=== PATIENT | female | born 1965 | race Caucasian/White ===

== ENCOUNTER 2019-12-23 16:21 | Emergency (ER) | payer BC, SELFPAY ==
--- NOTE | 2019-12-23 | US_ITS ---
EXAMINATION: US LOWER EXTREMITY VENOUS, BILATERAL CLINICAL INFORMATION: Shortness of breath. Lower extremity edema. COMPARISON: None. TECHNIQUE: Doppler spectral analysis and color flow Doppler imaging was performed of both lower extremities. Compression and augmentation maneuvers were performed. FINDINGS: Bilaterally, the common femoral, femoral, popliteal and calf veins were well-identified and normal. They demonstrate normal compressibility and color fill-in. IMPRESSION: No evidence for a lower extremity deep vein thrombosis.
[2019-12-23 16:43] VITALS: BP 155/62; PULSE 85; RESP 18; TEMP 36.7; O2SAT 99; BMI 31.7
[2019-12-23 16:48] VITALS: RESP 20
--- NOTE | 2019-12-23 16:51 | ECG_ITS ---
Test Reason : CHEST TITNESS Blood Pressure : / mmHG Vent. Rate : 077 BPM Atrial Rate : 077 BPM P-R Int : 128 ms QRS Dur : 084 ms QT Int : 368 ms P-R-T Axes : 061 009 031 degrees QTc Int : 416 ms Normal sinus rhythm Possible Left atrial enlargement Borderline ECG When compared with ECG of 25-DEC-2017 16:17, No significant change was found Referred By: Karin Wong Electronically Signed By:CÉSAR KENDRICK
--- NOTE | 2019-12-23 16:51 | XR_ITS ---
EXAMINATION: XR CHEST CLINICAL INFORMATION: Shortness of breath COMPARISON: CTA chest 07/15/2017 TECHNIQUE: Frontal view of the chest was obtained. FINDINGS: The heart and pulmonary vessels appear normal. No infiltrates effusions or lung masses are seen. There is no evidence of CHF. Some chronic reticulonodular changes are present at the lung bases, left greater than right that were also seen on the prior CT scan. Degenerative changes in the spine with scoliosis convex to the left. IMPRESSION: No acute intrathoracic disease.
[2019-12-23 17:13] LABS: MANUAL DIFF FLAG NO
[2019-12-23 17:15] LABS: Basophils Percent Auto 0.4 % (0-2); Eosinophils Absolute Auto 0.3 X10*3/uL (0.0-0.4); Eosinophils Percent Auto 4.7 % (0-4); Hematocrit 39.2 % (37-47); Hemoglobin 12.8 g/dl (12.0-16.0); Imm Gran Abs Auto 0.01 X10*3/uL (0.00-0.03); Imm Gran Pct Auto 0.1 % (0.0-0.4); Lymphocytes Absolute Auto 2.3 X10*3/uL (1.2-4.9); Lymphocytes Percent Auto 32.1 % (20-40); Mean Corpuscular HGB Conc 32.7 g/dl (31.0-35.0); Mean Corpuscular Hemoglobin 29.6 pg (27.0-33.0); Mean Corpuscular Volume 90.7 fL (80-98); Mean Platelet Volume 9.6 fL (9.4-12.3); Monocytes Absolute Auto 0.9 X10*3/uL (0.1-1.2); Neutrophils Absolute Auto 3.5 X10*3/uL (2.0-8.3); Neutrophils Percent Auto 49.7 % (45-73); Platelet Count 289 X10*3/uL (160-400); Red Blood Count 4.32 X10*6/uL (4.20-5.50)
--- NOTE | 2019-12-23 17:25 | ED_ITS ---
HPI - SOB/Dyspnea General Chief Complaint: Dyspnea <LIZZETTE Dickinson - Last Filed: 12/23/19 19:51> Stated Complaint: CHEST TIGHTNESS <LIZZETTE Dickinson - Last Filed: 12/23/19 19:51> Time Seen by Provider: 12/23/19 16:50 <LIZZETTE Dickinson - Last Filed: 12/23/19 19:51> Source: patient <LIZZETTE Dickinson - Last Filed: 12/23/19 19:51> Mode of arrival: ambulatory <LIZZETTE Dickinson - Last Filed: 12/23/19 19:51> Limitations: no limitations <LIZZETTE Dickinson - Last Filed: 12/23/19 19:51> History of Present Illness HPI Narrative: Healthy 54 yo female presenting with VIVAR for the last 2 weeks. Also noted new onset of bilateral LE edema and mild chest tightness. VIVAR worsening over the last 2 weeks. Seen at PCP office today and sent to ED for further evaluation of possible new onset CHF. <LIZZETTE Dickinson - Last Filed: 12/23/19 19:51> MD elicited complaint: shortness of breath <LIZZETTE Dickinson - Last Filed: 12/23/19 19:51> Onset (ago): week(s) (2) <LIZZETTE Dickinson - Last Filed: 12/23/19 19:51> Context: occurred during exertion <LIZZETTE Dickinson - Last Filed: 12/23/19 19:51> Timing: intermittent <LIZZETTE Dickinson - Last Filed: 12/23/19 19:51> Severity: severe <LIZZETTE Dickinson - Last Filed: 12/23/19 19:51> Exacerbating factors: exertion and talking <LIZZETTE Dickinson - Last Filed: 12/23/19 19:51> Relieving factors: rest and upright position <LIZZETTE Dickinson - Last Filed: 12/23/19 19:51> Associated symptoms: lightheadedness <LIZZETTE Dickinson - Last Filed: 12/23/19 19:51> Treatment prior to arrival: none <LIZZETTE Dickinson - Last Filed: 12/23/19 19:51> Related Data Home oxygen amount: none <LIZZETTE Dickinson - Last Filed: 12/23/19 19:51> Home Medications: Home Medications Medication Instructions Recorded Confirmed citalopram 20 mg tablet 20 mg PO DAILY 12/23/19 12/23/19 naproxen 500 mg tablet,delayed 500 mg PO BID 12/23/19 12/23/19 release Previous Rx's Medication Instructions Recorded furosemide [Lasix] 20 mg PO DAILY #10 tab 12/23/19 <LIZZETTE Dickinson - Last Filed: 12/23/19 19:51> Allergies/Adverse Reactions: Allergies Allergy/AdvReac Type Severity Reaction Status Date / Time latex [LATEX] Allergy Severe RASH Unverified 12/08/19 15:54 Penicillins [PENICILLINS] Allergy Intermediate RASH Unverified 12/08/19 15:54 penicillin G Allergy Unknown Rash, Verified 11/04/19 00:00 tight chest, difficulty breathing Latex Allergy Unknown Rash, Uncoded 11/04/19 00:00 tight chest, difficulty breathing laytex Allergy Unknown Uncoded 03/31/18 00:00 penicilin Allergy Unknown Uncoded 03/31/18 00:00 <LIZZETTE Dickinson - Last Filed: 12/23/19 19:51> Review of Systems Review of Systems: Constitutional: No Fever, No Chills ENT/Mouth: No sore throat, No Rhinorrhea, No Swallowing Difficulty Eyes: No Eye Pain, No Swelling, No Redness Cardiovascular: No Chest Pain, positive SOB, No Orthopnea, positive Edema Respiratory: No Cough, No Sputum, No Wheezing, positive dyspnea Gastrointestinal: No Nausea, No Vomiting, No Diarrhea, No abdominal Pain, No Hematochezia, No Melena Genitourinary: No Dysuria, No Urinary Frequency, No Hematuria Musculoskeletal: positive joint pain, positive Myalgias Skin: No Skin Lesions, No rash Neuro: No Weakness, No Numbness, No Dizziness, No Headache Psych: No Anxiety/Panic, No Depression Heme/Lymph: No Bruising, No Lymphadenopathy Endocrine: No Polyuria, No Polydipsia All other 10 point ROS are negative. <LIZZETTE Dickinson - Last Filed: 12/23/19 19:51> [facility] Past Medical History Attestation statement: The following information was validated with the patient. <LIZZETTE Dickinson - Last Filed: 12/23/19 19:51> Medical History: Medical History (Updated 12/23/19 @ 19:50 by LIZZETTE Dickinson) No known health problems <LIZZETTE Dickinson - Last Filed: 12/23/19 19:51> Social History Social History: Social History Alcohol intake: never Smoking Status: Never smoker Use of substances other than those prescribed or required for medical reasons: No Advance Directives: Yes Advance Directives on File: Yes Advance Directives Date on File: 12/23/19 <LIZZETTE Dickinson - Last Filed: 12/23/19 19:51> Physical Exam Vital Signs and I&O and Narrative: Vital Signs and I&O: Vital Signs Temp 98.1 F 12/23/19 17:40 Pulse 78 12/23/19 17:40 Resp 24 H 12/23/19 17:40 BP 133/60 12/23/19 17:40 Pulse Ox 98 12/23/19 17:40 Intake & Output 12/23/19 12/23/19 12/24/19 06:59 18:59 06:59 Weight 86.585 kg Body Mass Index 31.7 Appearance: Alert. Oriented X3. No acute distress. Eyes: Pupils equal, round and reactive to light. ENT: Pharynx normal. Neck: Normal inspection. Neck supple. CVS: Normal heart rate and rhythm. Pulses normal. Respiratory: dyspnea with speaking, lung sounds diminished Abdomen: Soft and nontender. Skin: Skin warm and dry. Normal skin color. Normal skin turgor. Extremities: No lower extremity edema. No lower extremity edema. Neuro: Oriented X 3. No motor deficit. No sensory deficit. <LIZZETTE Dickinson - Last Filed: 12/23/19 19:51> Vital Signs and I&O: Vital Signs Temp 98.1 F 12/23/19 17:40 Pulse 78 12/23/19 17:40 Resp 24 H 12/23/19 17:40 BP 133/60 12/23/19 17:40 Pulse Ox 98 12/23/19 17:40 Intake & Output 12/23/19 12/23/1920 06:59 18:59 06:59 Weight 86.585 kg Body Mass Index 31.7 <Enzo Murphy DO - Last Filed: 12/24/19 02:12> Course Course Hospital Course: non-toxic appearing at rest with no hypoxia however she is dysnpeic with speaking. will get LE dopplers to r/o DVT, check CXR and BNP. <LIZZETTE Dickinson - Last Filed: 12/23/19 19:51> Reevaluation(s) Reevaluation #1: Workup is unremarkable including normal CXR, BNP, LE dopplers, H/H. Unclear etiology of SOB and LE edema. No hypoxia at rest OR with exertion. Case d/w Dr. Murphy - will empircally start patient on low dose lasix and have her follow up with her PCP. She is stable for discharge. <LIZZETTE Dickinson - Last Filed: 12/23/19 19:51> MDM - SOB/Dyspnea Differential Diagnosis Differential diagnosis: Likely congestive heart failure, pulmonary embolism, pleural effusion and anemia <LIZZETTE Dickinson - Last Filed: 12/23/19 19:51> Medical Records Attestation: I reviewed the patient's medical records. <LIZZETTE Dickinson - Last Filed: 12/23/19 19:51> Lab Data Attestation: I reviewed the patient's lab results. <LIZZETTE Dickinson - Last Filed: 12/23/19 19:51> Result diagrams: : 12/23/19 17:05 12/23/19 17:05 <LIZZETTE Dickinson - Last Filed: 12/23/19 19:51> Labs: Lab Results 12/23/19 12/23/19 12/23/19 Range/Units 17:05 17:05 17:05 WBC 7.0 (4.8-10.8) X10*3/uL RBC 4.32 (4.20-5.50) X10*6/uL Hgb 12.8 (12.0-16.0) g/dl Hct 39.2 (37-47) % MCV 90.7 (80-98) fL MCH 29.6 (27.0-33.0) pg MCHC 32.7 (31.0-35.0) g/dl RDW 12.0 (11.0-16.0) % Plt Count 289 (160-400) X10*3/uL MPV 9.6 (9.4-12.3) fL Immature Gran % (Auto) 0.1 (0.0-0.4) % Neut % (Auto) 49.7 (45-73) % Lymph % (Auto) 32.1 (20-40) % [place] % (Auto) 13.0 H (2-11) % Eos % (Auto) 4.7 H (0-4) % Baso % (Auto) 0.4 (0-2) % Neut # (Auto) 3.5 (2.0-8.3) X10*3/uL Lymph # (Auto) 2.3 (1.2-4.9) X10*3/uL [place] # (Auto) 0.9 (0.1-1.2) X10*3/uL Eos # (Auto) 0.3 (0.0-0.4) X10*3/uL Baso # (Auto) 0.0 (0.0-0.2) X10*3/uL Abs Immat Gran (auto) 0.01 (0.00-0.03) X10*3/uL Absolute Nucleated RBC 0.000 (0.0-0.012) X10*3/uL Nucleated RBC % (auto) 0.0 (0.0-0.2) /100WBC D-Dimer 210 NG/ML Hold Blue Top SEE NOTE Sodium 143 (135-145) mmol/L Potassium 4.3 (3.3-5.1) mmol/l Chloride 108 (96-108) mmol/L Carbon Dioxide 28 (22-29) mmol/L Anion Gap 11 L (12-20) BUN 14 (9-16) mg/dL Creatinine 0.76 (0.5-1.4) mg/dL Estim Creat Clear Calc 94.0 Estimated GFR > 60 Random Glucose 95 (60-115) mg/dL Calcium 9.0 (8.4-10.2) mg/dL B-Natriuretic Peptide (<100) pg/mL Urine Color Urine Appearance Urine pH (5.0-8.0) Ur Specific [place] (1.005-1.025) Urine Protein (NEG-TRACE) MG/DL Urine Glucose (UA) (NEG) MG/DL Urine Ketones (NEG) MG/DL Urine Blood (NEG) Urine Nitrite (NEG) Ur Leukocyte Esterase (NEG) 12/23/19 12/23/19 Range/Units 17:05 17:44 WBC (4.8-10.8) X10*3/uL RBC (4.20-5.50) X10*6/uL Hgb (12.0-16.0) g/dl Hct (37-47) % MCV (80-98) fL MCH (27.0-33.0) pg MCHC (31.0-35.0) g/dl RDW (11.0-16.0) % Plt Count (160-400) X10*3/uL MPV (9.4-12.3) fL Immature Gran % (Auto) (0.0-0.4) % Neut % (Auto) (45-73) % Lymph % (Auto) (20-40) % [place] % (Auto) (2-11) % Eos % (Auto) (0-4) % Baso % (Auto) (0-2) % Neut # (Auto) (2.0-8.3) X10*3/uL Lymph # (Auto) (1.2-4.9) X10*3/uL [place] # (Auto) (0.1-1.2) X10*3/uL Eos # (Auto) (0.0-0.4) X10*3/uL Baso # (Auto) (0.0-0.2) X10*3/uL Abs Immat Gran (auto) (0.00-0.03) X10*3/uL Absolute Nucleated RBC (0.0-0.012) X10*3/uL Nucleated RBC % (auto) (0.0-0.2) /100WBC D-Dimer NG/ML Hold Blue Top Sodium (135-145) mmol/L Potassium (3.3-5.1) mmol/l Chloride (96-108) mmol/L Carbon Dioxide (22-29) mmol/L Anion Gap (12-20) BUN (9-16) mg/dL Creatinine (0.5-1.4) mg/dL Estim Creat Clear Calc Estimated GFR Random Glucose (60-115) mg/dL Calcium (8.4-10.2) mg/dL B-Natriuretic Peptide 29 (<100) pg/mL Urine Color YELLOW Urine Appearance CLEAR Urine pH 7.0 (5.0-8.0) Ur Specific [place] 1.010 (1.005-1.025) Urine Protein NEG (NEG-TRACE) MG/DL Urine Glucose (UA) NEG (NEG) MG/DL Urine Ketones NEG (NEG) MG/DL Urine Blood NEG (NEG) Urine Nitrite NEG (NEG) Ur Leukocyte Esterase NEG (NEG) <LIZZETTE Dickinson - Last Filed: 12/23/19 19:51> Lab Results 12/23/19 12/23/19 12/23/19 Range/Units 17:05 17:05 17:05 WBC 7.0 (4.8-10.8) X10*3/uL RBC 4.32 (4.20-5.50) X10*6/uL Hgb 12.8 (12.0-16.0) g/dl Hct 39.2 (37-47) % MCV 90.7 (80-98) fL MCH 29.6 (27.0-33.0) pg MCHC 32.7 (31.0-35.0) g/dl RDW 12.0 (11.0-16.0) % Plt Count 289 (160-400) X10*3/uL MPV 9.6 (9.4-12.3) fL Immature Gran % (Auto) 0.1 (0.0-0.4) % Neut % (Auto) 49.7 (45-73) % Lymph % (Auto) 32.1 (20-40) % [place] % (Auto) 13.0 H (2-11) % Eos % (Auto) 4.7 H (0-4) % Baso % (Auto) 0.4 (0-2) % Neut # (Auto) 3.5 (2.0-8.3) X10*3/uL Lymph # (Auto) 2.3 (1.2-4.9) X10*3/uL [place] # (Auto) 0.9 (0.1-1.2) X10*3/uL Eos # (Auto) 0.3 (0.0-0.4) X10*3/uL Baso # (Auto) 0.0 (0.0-0.2) X10*3/uL Abs Immat Gran (auto) 0.01 (0.00-0.03) X10*3/uL Absolute Nucleated RBC 0.000 (0.0-0.012) X10*3/uL Nucleated RBC % (auto) 0.0 (0.0-0.2) /100WBC D-Dimer 210 NG/ML Hold Blue Top SEE NOTE Sodium 143 (135-145) mmol/L Potassium 4.3 (3.3-5.1) mmol/l Chloride 108 (96-108) mmol/L Carbon Dioxide 28 (22-29) mmol/L Anion Gap 11 L (12-20) BUN 14 (9-16) mg/dL Creatinine 0.76 (0.5-1.4) mg/dL Estim Creat Clear Calc 94.0 Estimated GFR > 60 Random Glucose 95 (60-115) mg/dL Calcium 9.0 (8.4-10.2) mg/dL B-Natriuretic Peptide (<100) pg/mL Urine Color Urine Appearance Urine pH (5.0-8.0) Ur Specific [place] (1.005-1.025) Urine Protein (NEG-TRACE) MG/DL Urine Glucose (UA) (NEG) MG/DL Urine Ketones (NEG) MG/DL Urine Blood (NEG) Urine Nitrite (NEG) Ur Leukocyte Esterase (NEG) 12/23/19 12/23/19 Range/Units 17:05 17:44 WBC (4.8-10.8) X10*3/uL RBC (4.20-5.50) X10*6/uL Hgb (12.0-16.0) g/dl Hct (37-47) % MCV (80-98) fL MCH (27.0-33.0) pg MCHC (31.0-35.0) g/dl RDW (11.0-16.0) % Plt Count (160-400) X10*3/uL MPV (9.4-12.3) fL Immature Gran % (Auto) (0.0-0.4) % Neut % (Auto) (45-73) % Lymph % (Auto) (20-40) % [place] % (Auto) (2-11) % Eos % (Auto) (0-4) % Baso % (Auto) (0-2) % Neut # (Auto) (2.0-8.3) X10*3/uL Lymph # (Auto) (1.2-4.9) X10*3/uL [place] # (Auto) (0.1-1.2) X10*3/uL Eos # (Auto) (0.0-0.4) X10*3/uL Baso # (Auto) (0.0-0.2) X10*3/uL Abs Immat Gran (auto) (0.00-0.03) X10*3/uL Absolute Nucleated RBC (0.0-0.012) X10*3/uL Nucleated RBC % (auto) (0.0-0.2) /100WBC D-Dimer NG/ML Hold Blue Top Sodium (135-145) mmol/L Potassium (3.3-5.1) mmol/l Chloride (96-108) mmol/L Carbon Dioxide (22-29) mmol/L Anion Gap (12-20) BUN (9-16) mg/dL Creatinine (0.5-1.4) mg/dL Estim Creat Clear Calc Estimated GFR Random Glucose (60-115) mg/dL Calcium (8.4-10.2) mg/dL B-Natriuretic Peptide 29 (<100) pg/mL Urine Color YELLOW Urine Appearance CLEAR Urine pH 7.0 (5.0-8.0) Ur Specific [place] 1.010 (1.005-1.025) Urine Protein NEG (NEG-TRACE) MG/DL Urine Glucose (UA) NEG (NEG) MG/DL Urine Ketones NEG (NEG) MG/DL Urine Blood NEG (NEG) Urine Nitrite NEG (NEG) Ur Leukocyte Esterase NEG (NEG) <Enzo Murphy DO - Last Filed: 12/24/19 02:12> ECG Data Attestation: I personally reviewed and interpreted this ECG as follows: <LIZZETTE Dickinson - Last Filed: 12/23/19 19:51> ECG interpretation date: 12/23/19 <LIZZETTE Dickinson - Last Filed: 12/23/19 19:51> Interpretation: normal sinus rhythm, HR 77bpm, no ischemic changes, normal Qtc <LIZZETTE Dickinson Last Filed: 12/23/19 19:51> Critical Care Time Critical Care Time Critical Care Time: No <LIZZETTE Dickinson Last Filed: 12/23/19 19:51> Discharge Plan Discharge Clinical Impression: Pedal edema, Shortness of breath <LIZZETTE Dickinson Last Filed: 12/23/19 19:51> Patient Disposition: Home, Self-Care <LIZZETTE Dickinson Last Filed: 12/23/19 19:51> Instructions: Dyspnea (ED) <LIZZETTE Dickinson Last Filed: 12/23/19 19:51> Additional Instructions: Start taking Lasix, which is a diuretic to help increase urination and hopefully decrease the swelling in your legs. When you are sitting down, do your best to elevate you legs. Try compression socks or stockings to help with the swelling. Follow up with your PCP this week. Come back to the ER if your shortness of breath worsens or if you develop chest pain. <LIZZETTE Dickinson Last Filed: 12/23/19 19:51> Prescriptions: New furosemide [Lasix] 20 mg tablet 20 mg PO DAILY Qty: 10 RF: 0 No Action naproxen [EC-Naproxen] 500 mg tablet,delayed release (DR/EC) 500 mg PO BID RF: 0 citalopram [Celexa] 20 mg tablet 20 mg PO DAILY RF: 0 <LIZZETTE Dickinson Last Filed: 12/23/19 19:51> Interventions: ED Discharge Assessment Last Done: 12/23/19 20:30 <LIZZETTE Dickinson Last Filed: 12/23/19 19:51> Discharge Date/Time: 12/23/19 20:32 <LIZZETTE Dickisnon Last Filed: 12/23/19 19:51>
--- NOTE | 2019-12-23 17:38 | PC.NURSE ---
EKG DONE BY ID #[id number] RN MADE AWARE
[2019-12-23 17:40] VITALS: BP 133/60; PULSE 78; RESP 24; TEMP 36.7; O2SAT 98
[2019-12-23 17:44] LABS: Anion Gap 11 (12-20); Blood Urea Nitrogen 14 mg/dL (9-16); Carbon Dioxide 28 mmol/L (22-29); Chloride 108 mmol/L (96-108); Estimated Glomerular Filt Rate > 60; Glucose Random 95 mg/dL (60-115); Potassium 4.3 mmol/l (3.3-5.1); Sodium 143 mmol/L (135-145)
[2019-12-23 17:49] LABS: B Type Natriuretic Peptide 29 pg/mL (<100)
[2019-12-23 17:51] LABS: Glucose Urine UA NEG (NEG); Leukocyte Esterase Urine NEG (NEG); Nitrite Urine NEG (NEG); Urine Blood NEG (NEG); Urine Ketones NEG (NEG); Urine Protein NEG (NEG-TRACE)
[2019-12-23 17:54] LABS: Appearance Urine CLEAR; Color Urine YELLOW
[2019-12-23 18:22] LABS: D Dimer 210 NG/ML
--- NOTE | 2019-12-23 20:07 | PC.NURSE ---
Addendum entered by Yi Karimi 12/23/19 20:09: pt was 96% while ambulatory and following the walk. pt complained of dizziness and leg pain. Original Note: RT juan reports that he walked patient around er. she was 97% on room air at rest. Pt did not complain of dyspnea.
== END 2019-12-23 20:32 | disposition home or self-care (01) ==
PROVIDERS: Physician Assistant; Emergency Provider Emergency Medicine; PCP Family Medicine
DX: R06.02 Shortness of breath (principal); R60.0 Localized edema; R07.89 Other chest pain
CPT/HCPCS: 36415; 71045; 80048; 81003; 83880; 85025; 85379; 93005; 93010; 93970; 99284

== ENCOUNTER → 2020-02-22 13:38 | Outpatient (BNVA) | payer BC, SELFPAY | PROVIDERS: PCP Family Medicine; Referring Provider Family Medicine; Visit Provider Nurse Practitioner Family | DX: Z76.89 Persons encountering health services in other specified circumstances (principal) ==

== ENCOUNTER → 2020-03-27 09:50 | Outpatient (BNVA) | payer BC, SELFPAY | PROVIDERS: PCP Family Medicine; Visit Provider Internal Medicine | DX: Z76.89 Persons encountering health services in other specified circumstances (principal) ==

== ENCOUNTER → 2020-04-18 08:06 | Outpatient (REF) | payer BC, SELFPAY ==
--- NOTE | 2020-04-18 08:11 | CA_ITS ---
Acquisition Time: 2020-04-18 08:13:55 Total Exercise Time: 00:05:28 Test Indications: Dyspnea Medications: Protocol: IRAM Max HR: 144 BPM 85% of Pred: 168 BPM Max BP: 132/076 mmHG Max Work Load: 7.0 METS Exercise stress test with exercise 5 min 28 sec of Iram protocol, with 5/10 anterior chest tightness at baseline that increased to 8/10 tightness with exercise, with moderate shortness of breath with exercise, without arrythmia, with normotensive response to exercise, without EKG changes meeting criteria for ischemia. In recovery her chest tightness improved back to baseline and her sob resolved. Test reviewed with Dr Fay. Exercise nuclear stress test ordered to further evaluate for ischemia. Referred By: Domo Apodaca Overread By: IDA TRAN
[2020-04-18 09:48] LABS: Alanine Aminotransferase 19 U/L (0-31); Albumin Level 4.2 g/dL (3.5-5.0); Alkaline Phosphatase 84 U/L (39-117); Aspartate Amino Transferase 14 U/L (5-31); Bilirubin Direct 0.3 mg/dL (0.0-0.5); Bilirubin Total 0.8 mg/dL (0.0-1.0); Total Protein 7.1 g/dL (6.5-8.0)
== END ==
LOC: HO.CARD 08:06
PROVIDERS: Nurse Practitioner Family; PCP Family Medicine; Visit Provider Internal Medicine
DX: Z12.11 Encounter for screening for malignant neoplasm of colon (principal); R07.2 Precordial pain
CPT/HCPCS: 36415; 80076; 93017

== ENCOUNTER → 2020-04-23 13:47 | Outpatient (REF) | payer BC, SELFPAY ==
--- NOTE | 2020-04-23 13:50 | CA_ITS ---
Transthoracic Echocardiogram Patient (Last, First, Middle): Rin Thomas L Gender: Female Date of : 1965 Age: 54 Procedure Date: 04/23/2020 Procedure Type: Transthoracic Echocardiogram Location: OP Height: 165.1 cm Weight: 88.91 kg BSA: 1.96 m2 Heart Rate: bpm BP: 128 / 70 mmHg Siebel Consultant: Referring MD: Domo Apodaca MD Optics Test Technician: Rigo Fay MD Symptoms: R06.02 - Shortness of breath Study Quality: Fair ECG Rhythm: Sinus Conclusions: - Essentially normal study Findings Left Ventricle Normal left ventricular size, thickness, and systolic function. The visually estimated ejection fraction is between 60-65%. Diastolic function is normal for age. Right Ventricle Normal right ventricular cavity size and systolic function. Atria Both atria are normal in size. There is no evidence of interatrial shunt. Aortic Valve Normal aortic valve structure and function. There is no aortic valve stenosis. There is no aortic valve regurgitation. Mitral Valve Normal mitral valve structure and function. There is trace mitral valve regurgitation. There is no mitral valve stenosis. Pulmonic Valve The pulmonic valve was not well visualized. Tricuspid Valve Likely normal tricuspid valve structure and function. There is trace tricuspid valve regurgitation. The right ventricular systolic pressure is normal. The right ventricular systolic pressure is 20 mmHg. Normal right atrial pressure. There is no evidence of pulmonary hypertension. Great Vessels All visible segments of the aorta are normal in size. The pulmonary artery was not well visualized. Venous The inferior vena cava is normal in size and collapses greater than 50% with inspiration. Pericardium/Pleural There is no evidence of pericardial effusion. Prior Study Comparison No prior study available for comparison. Measurements 2D Linear Measurements IVSd: 1.16 0.6-0.9/0.6-1.0 cm LVIDd: 4.40 3.9-5.3/4.2-5.9 cm LVIDd Index: 2.24 2.4-3.2/2.2-3.1 cm/m2 LVIDs: 2.95 2.0-3.6 cm LVPWd: 1.11 0.7-1.1 cm Ao Root: 2.80 2.1-3.5 cm LA Diam: 3.90 2.7-3.8/3.0-4.0 cm LAIDs Index: 1.99 1.5-2.3 cm/m2 LV Mass: 220.02 67-162/88-224 g LV Mass Index: 112.25 43-95/49-115 g/m2 LVOT Diam: 2.40 3.0+(-)1.3 cm Mitral Valve MV Pk E: 0.72 MV PK A: 0.70 MV Decel Time: 197.00 E/A: 1.00 E'Lateral: 12.80 E'Medial: 12.00 E/E' Med: 6.00 E/E' Lat: 5.60 PHT: 58.00 MVA PHT: 3.79 Decel Bledsoe: 3.64 Aortic Valve AoV Pk Shawn: 1.46 AoV Mn Shawn: 0.99 AoV VTI: 0.35 AoV Pk Grad: 9.00 Aov Mn Grad: 5.00 URI Cont.VTI: 3.33 LVOT LVOT Pk Shawn: 1.17 LVOT Mn Shawn: 0.79 LVOT VTI: 0.26 LVOT Pk Grad: 5.00 LVOT Mn Grad: 3.00 LVOT Diam: 2.40 LVOT Area: 4.52 Diastolic Function MV Pk E: 0.72 MV Pk A: 0.70 E/A: 1.00 E'Medial: 12.00 E/E' Med: 6.00 E' Laterial: 12.80 E/E' Lat: 5.60 Tricuspid Valve TR Pk Shawn: 1.71 TR Pk Grad: 12.00 RA Press: 8.00 RVSP: 20.00 Great Vessels Aorta Ao Root-2D: 2.80 2.0-3.7 cm Ao Asc: 2.70 2.1-3.4 cm Pulmonary Valve PV Pk Shawn: 1.00 Peak PV Grad: 4.00 Updated in Other Vendor System with Status of Final Rigo Fay MD electronically signed on 04/24/2020 12:18:22 PM with status of Final
== END ==
LOC: HO.CARD 13:47
PROVIDERS: Visit Provider Internal Medicine
DX: R06.02 Shortness of breath (principal)
CPT/HCPCS: 93306

== ENCOUNTER → 2020-04-24 09:29 | Outpatient (REF) | payer BC, SELFPAY ==
--- NOTE | 2020-04-24 09:30 | CA_ITS ---
Acquisition Time: 2020-04-24 09:38:25 Total Exercise Time: 00:04:47 Test Indications: Abnormal Treadmill Test Medications: Protocol: IRAM Max HR: 146 BPM 86% of Pred: 168 BPM Max BP: 140/068 mmHG Max Work Load: 6.7 METS Exercise stress test with exercise 4 min 47sec of Iram protocol, with severe sob and 6-7/10 anterior chest tightness and request to stop exercise, without arrythmia, with normotensive response to exercise, without EKG changes meeting criteria for ischemia. In recovery her symptoms gradually improved and near resolution. Nuclear images pending. Test reviewed with Dr Fay. Referred By: Maryellen Rivera Overread By: MARYELLEN RIVERA
== END ==
LOC: HO.CARD 09:29
PROVIDERS: Visit Provider Nurse Practitioner Family
DX: R07.2 Precordial pain (principal); R06.02 Shortness of breath; R94.30 Abnormal result of cardiovascular function study, unspecified
CPT/HCPCS: 93017

== ENCOUNTER → 2020-04-24 09:45 | Outpatient (REF) | payer BC, SELFPAY ==
--- NOTE | 2020-04-24 09:47 | NM_ITS ---
EXERCISE MYOCARDIAL PERFUSION STUDY INDICATION: Preoperative cardiac evaluation, shortness of breath, assess for coronary disease and ischemia TECHNIQUE: The patient was brought in for an exercise perfusion study on 04/24/2020. Patient performed exercise as per Jam protocol and was injected 30 mCi of sestamibi once target heart rate was achieved. Images were obtained using the SPECT gamma camera interlaced with the gating device. Images were obtained in supine position. Resting perfusion study was performed on 04/25/2020. Patient was administered 30 mCi of sestamibi intravenously at rest. Images were then obtained in supine position. Total DLP 84mGy-cm. Images were processed with the software and compared side to side in short axis, horizontal long axis and vertical long axis views. FINDINGS: Raw images were reviewed. The stress perfusion study showed no significant perfusion abnormality. Both uncorrected as well as CT attenuation corrected images were reviewed. The gated study shows normal LV systolic function with calculated LVEF of 74%. LV cavity is normal in size. The gated study shows normal wall thickening and contraction of segments. Resting study shows slight reduction in tracer uptake in the basal to mid anterior and anteroseptal areas but suspect artifactual etiology. In the corrected images, these areas appear better perfused. Gating at rest reveals normal wall motion with ejection fraction at > 75%. The findings are consistent with no definite reversible or fixed perfusion defects. NM/NM cardiolite stress test IMPRESSION: 1. Myocardial perfusion imaging study shows likely normal myocardial perfusion. No evidence of any ischemia or infarction. 2. Gated LVEF is 74% during stress; >75% during rest. 3. Transient ischemic dilatation not present. EKG component of the test reported separately.
== END ==
LOC: HO.CARD 09:45
PROVIDERS: PCP Family Medicine; Visit Provider Internal Medicine
DX: R07.2 Precordial pain (principal); R06.02 Shortness of breath; R94.30 Abnormal result of cardiovascular function study, unspecified
CPT/HCPCS: 78452; A9500

== ENCOUNTER 2020-04-26 06:37 | Day surgery (SDC) | payer BC, SELFPAY ==
[2020-04-23 10:17] VITALS: BMI 33.0
--- NOTE | 2020-04-25 08:25 | HO.ANESPROP2 ---
Documented by User: Ruthann Jauregui 04/25/20 11:42 HPI - Anesthesia Eval Consult details Narrative: 54yo F for Colonoscopy Cardiac cleared @ low risk (sent for pt c/o of VIVAR and pedal edema) [facility] Past Medical History Medical History Cancer Hx of radiation therapy Shortness of breath on exertion Family History Family History Father High blood pressure Diabetes Mother High blood pressure Diabetes Ovarian cancer Brother Heart attack Surgical History Surgical History History of breast surgery (~2017) Social History Social History Alcohol intake: never Smoking Status: Never smoker Use of substances other than those prescribed or required for medical reasons: No Advance Directives: Yes Advance Directives Information Provided: Yes Advance Directives on File: Yes Advance Directives Date on File: 12/23/19 Recently lost weight without trying: No Meds Allergies Allergy/AdvReac Type Severity Reaction Status Date / Time latex [LATEX] Allergy Severe RASH Verified 03/27/20 10:09 Penicillins [PENICILLINS] Allergy Intermediate RASH Verified 03/27/20 10:09 Home Medications Medication Instructions Recorded Confirmed Type citalopram 1 tab PO DAILY 04/23/20 04/23/20 History furosemide 1 tab PO DAILY 04/23/20 04/23/20 History naproxen 1 tab PO Q12H PRN 04/23/20 04/23/20 History Exam Exam Date and Time: April 25, 2020 0825 Height,Weight and Vital Signs: Height 5 ft 5 in Weight 90 kg Pertinent Lab Results Pertinent Lab Results: Laboratory Tests 12/23/19 12/23/19 17:05 17:05 WBC 7.0 Hgb 12.8 Hct 39.2 Plt Count 289 Sodium 143 Potassium 4.3 Chloride 108 Carbon Dioxide 28 BUN 14 Creatinine 0.76 Narrative Narrative: EKG 12/2019 Normal sinus rhythm Possible Left atrial enlargement Borderline ECG When compared with ECG of 25-DEC-2017 16:17, No significant change was found Echo 04/23/20 Conclusions: - Essentially normal study Stress 04/23/20 NM cardiolite stress test IMPRESSION: 1. Myocardial perfusion imaging study shows likely normal myocardial perfusion. No evidence of any ischemia or infarction. 2. Gated LVEF is 74% during stress; >75% during rest. 3. Transient ischemic dilatation not present. Assessment and Plan Assessment Anesthesia Assessment: Chart Reviewed Documented by User: Katharine Pop 04/26/20 07:30 [facility] Past Medical History Medical History Cancer Hx of radiation therapy Shortness of breath on exertion Family History Family History Father High blood pressure Diabetes Mother High blood pressure Diabetes Ovarian cancer Brother Heart attack Surgical History Surgical History History of breast surgery (~2017) Social History Social History Alcohol intake: never Smoking Status: Never smoker Use of substances other than those prescribed or required for medical reasons: No Advance Directives: Yes Advance Directives Information Provided: Yes Advance Directives on File: Yes Advance Directives Date on File: 12/23/19 Recently lost weight without trying: No Meds Allergies Allergy/AdvReac Type Severity Reaction Status Date / Time latex [LATEX] Allergy Severe RASH Verified 03/27/20 10:09 Penicillins [PENICILLINS] Allergy Intermediate RASH Verified 03/27/20 10:09 Home Medications Medication Instructions Recorded Confirmed Type citalopram 1 tab PO DAILY 04/23/20 04/23/20 History furosemide 1 tab PO DAILY 04/23/20 04/23/20 History naproxen 1 tab PO Q12H PRN 04/23/20 04/23/20 History Exam Airway Mallampati Class: I TM Dist: >3cm Neck ROM: Full Loose/Missing/Broken Teeth: No Heart: RRR Lungs: CTA Assessment and Plan Assessment Anesthesia Assessment: Anesthesia Plan Discussed and Chart Reviewed Final Anesthetic Review NPO: Yes ASA Class: II Final Preanesthetic Review: Meds/Allgs Chart Reviewed, Consent Obtained/Reviewed and Anes Risks/Benef Reviewed Patient Risk: Low Procedure Risk: Low Anesthetic Plan Anesthetic Plan: MAC: Disposition: Standard PACU
[2020-04-26 07:02] VITALS: BP 114/71; PULSE 82; RESP 16; TEMP 36.6; O2SAT 97
[2020-04-26] MEDS: Lactated Ringers 1,000 ML 100 ML IVCONT (07:08)
--- NOTE | 2020-04-26 07:15 | MHC.SHP ---
Pre-Procedural Eval Section B Chief Complaint: screening Details of Present Illness: Colon cancer screening Hx of Breast Cancer--with radiation--2018 Relevant Family History (Specify if Yes): No Relevant Social History: None Present Medications: see Short Stay Collaborative assessment Medical History: Significant History (Breast cancer-with hx radiation,Dyspnea) History of Previous Operations: Relevant previous surgery/procedure and date(s) Allergies: Allergies Allergy/AdvReac Type Severity Reaction Status Date / Time latex [LATEX] Allergy Severe RASH Verified 03/27/20 10:09 Penicillins [PENICILLINS] Allergy Intermediate RASH Verified 03/27/20 10:09 Review of Systems Sugical H&P ROS: Negative: Constitution, Cardiovascular, Neurological and Gastrointestinal and Yes, Specify: Respiratory (dyspnea since radiation) and Hem-Onc (Breast cancer-2018) Exam Surgical H&P Exam: Normal: HEENT, Normal: Heart, Normal: Lungs, Normal: Extremities, Normal: Abdomen and Normal: Skin Plan Diagnosis/Plan: Unchanged I have reviewed the history and physical and performed a pertinent physical examination on my patient. No changes have occurred unless specified.yes
[2020-04-26 08:12] VITALS: BP 96/56; PULSE 89; RESP 12; TEMP 36.9; O2SAT 94
--- NOTE | 2020-04-26 08:12 | PM.PROC ---
Brief Operative Note Date of procedure: 04/26/20 Pre-op diagnosis: COLON CANCER SCREENING, HX BREAST CANCER Post-op diagnosis: other (RECTAL POLYP) Procedure: COLONOSCOPY WITH EXCISIONAL POLYPECTOMY--COLD BX FORCEPS FINDINGS-PREP EXCELLENT MELI--SPHINCTER TONE NORMAL SCOPE TO CECUM--AO VALVE WELL SEEN, SLOW WITHDRAWAL GOOD ROTATIONAL VIEWS--SUPERFICIAL POLYP NOTED AND REMOVED @ 10CM--ARVERGE CLEAR. PLAN: REPEAT SCREENING IN 5 YEARS--HX BREAST CANCER Anesthesia: MAC (Selvin LUNSFORD) Surgeon: Mercy Colón Estimated blood loss (mL): 5 Pathology: other (RECTAL) Condition: stable Disposition: PACU
[2020-04-26 08:27] VITALS: BP 101/62; PULSE 78; RESP 16; O2SAT 96
--- NOTE | 2020-04-26 08:41 | PC.NURSE ---
0830 AWAKE ROGELIO PO STS THAT WAS GOOD DENIES ANY NAUSEA STS VOMITTED A LOT YESTERDAY PREP DC MONITORS DCD ASST OOB STEADY IV DCD DRESSED SELF AT BS CALL RAY IN REACH
--- NOTE | 2020-04-26 09:25 | HO.POSTANES ---
Post Anesthesia Evaluation Post Anesthesia Evaluation Vital Signs: Vital Signs Temp Pulse Resp BP Pulse Ox 04/26/20 08:27 78 16 101/62 96 04/26/20 08:12 98.5 F 89 12 96/56 L 94 04/26/20 07:02 97.8 F 82 16 114/71 97 Anesthesia: Monitored Mental Status: Awake Pain Control: Satisfactory Nausea/Vomiting: None Hydration: Adequate Anesthesia-Related Issues: No Anes. Related Issues
== END 2020-04-26 09:00 | disposition home or self-care (01) ==
PROVIDERS: PCP Family Medicine; Visit Provider Internal Medicine Gastroenterology
PROC: 0DJD8ZZ Inspection of Lower Intestinal Tract, Via Natural or Artificial Opening Endoscopic (ICD-10-PCS; CPT 45378; principal; 2020-04-26 07:30)
DX: Z12.11 Encounter for screening for malignant neoplasm of colon (principal); K62.1 Rectal polyp; Z85.3 Personal history of malignant neoplasm of breast; Z92.3 Personal history of irradiation; Z88.0 Allergy status to penicillin
CPT/HCPCS: 45380; 88305

== ENCOUNTER → 2020-05-17 14:37 | Outpatient (BNVA) | payer BC, SELFPAY | PROVIDERS: PCP Family Medicine; Visit Provider Nurse Practitioner Family ==

== ENCOUNTER 2020-06-06 15:02 | Outpatient (REF) | payer BC, SELFPAY | END 2020-06-06 15:03 | disposition home or self-care (01) | LOC: HO.LAB 15:02 | PROVIDERS: Visit Provider Internal Medicine | DX: Z20.822 Contact with and (suspected) exposure to COVID-19 (principal) | CPT/HCPCS: 36415; C9803; U0003; U0005 ==

== ENCOUNTER 2020-08-02 07:23 | Outpatient (REF) | payer BC, SELFPAY ==
--- NOTE | ~2020-08-02 | MM_ITS ---
EXAMINATION: MM DIAGNOSTIC DIGITAL BREAST TOMOSYNTHESIS, BILATERAL CLINICAL INFORMATION: History right invasive lobular cancer 2018. Due for yearly. Prior benign bilateral MR biopsy, two on right and one on left all performed on 05/05/2017. COMPARISON: Mammography: 05/10/2019, 05/06/2018, 05/05/2017, 09/06/2016; MRI breasts 11/27/2017, MR guided bilateral breast biopsy 05/05/2017. Targeted ultrasound left breast 05/10/2019. TECHNIQUE: Digital breast tomosynthesis is performed in both the craniocaudal and mediolateral oblique views along with computer-aided detection (CAD). Synthesized 2D images are generated from the tomosynthesis. Additional views are obtained: Exaggerated right CC, magnification exaggerated right CC, magnification right ML. FINDINGS: The breasts are heterogeneously dense, which may obscure small masses (ACR BI-RADS breast composition Category c). Parenchymal pattern is similar to prior studies. There is no developing density or interval mass or architectural abnormality. No abnormal calcifications. There is biopsy clip marker again seen upper outer quadrant left breast mid depth and 2 biopsy clip markers right breast upper outer quadrant. Surgical clips seen right axilla. Scarring on right stable. No significant changes. Results are provided to the patient at time of visit by the technologist. MM/MM tomosynthesis diagnostic BI IMPRESSION: No significant changes from prior studies. ASSESSMENT: BI-RADS 2: Benign RECOMMENDATION: Routine annual mammography screening. This patient's information was entered into a reminder system with a target due date for their next mammogram.
== END 2020-08-02 07:24 | disposition home or self-care (01) ==
LOC: HO.MAMMO 07:23
PROVIDERS: PCP Internal Medicine; Visit Provider Internal Medicine
DX: C50.919 Malignant neoplasm of unspecified site of unspecified female breast (principal)
CPT/HCPCS: 77062; 77066

== ENCOUNTER 2022-01-15 13:56 | Emergency (ER) | payer BC, SELFPAY ==
[2022-01-15 14:03] VITALS: BP 133/86; PULSE 74; O2SAT 97
[2022-01-15 14:55] VITALS: BP 134/75; PULSE 68; RESP 18; TEMP 36.6; O2SAT 97; BMI 32.9
[2022-01-15 15:15] LABS: MANUAL DIFF FLAG NO
[2022-01-15 15:17] LABS: Basophils Percent Auto 0.6 % (0-2); Eosinophils Absolute Auto 0.1 X10*3/uL (0.0-0.4); Eosinophils Percent Auto 2.3 % (0-4); Hematocrit 38.8 % (37.0-47.0); Hemoglobin 13.3 g/dl (12.0-16.0); Imm Gran Abs Auto 0.01 X10*3/uL (0.00-0.03); Imm Gran Pct Auto 0.2 % (0.0-0.4); Lymphocytes Absolute Auto 1.8 X10*3/uL (1.2-4.9); Lymphocytes Percent Auto 28.8 % (20-40); Mean Corpuscular HGB Conc 34.3 g/dl (31.0-35.0); Mean Corpuscular Hemoglobin 30.7 pg (27.0-33.0); Mean Corpuscular Volume 89.6 fL (80.0-98.0); Mean Platelet Volume 9.8 fL (9.4-12.3); Monocytes Absolute Auto 0.4 X10*3/uL (0.1-1.2); Neutrophils Absolute Auto 3.8 x10*3/uL (2.0-8.3); Neutrophils Percent Auto 61.1 % (45-73); Platelet Count 250 X10*3/uL (160-400); Red Blood Count 4.33 X10*6/uL (4.20-5.50); Red Cell Distribution Width 13.4 % (11.0-16.0); White Blood Count 6.2 X10*3/uL (4.8-10.8)
[2022-01-15 15:41] LABS: Anion Gap 15 (12-20); Blood Urea Nitrogen 13 mg/dL (9-16); Carbon Dioxide 26 mmol/L (22-29); Chloride 105 mmol/L (96-108); Creatinine Clr Calc Pharmacy 61.9; Estimated Glomerular Filt Rate 49; Glucose Random 127 mg/dL (60-115); Potassium 4.3 mmol/L (3.3-5.1); Sodium 142 mmol/L (135-145)
== END 2022-01-15 20:00 | disposition left against medical advice (07) ==
PROVIDERS: Emergency Provider Emergency Medicine
DX: R10.9 Unspecified abdominal pain (principal); M79.605 Pain in left leg; M79.604 Pain in right leg
CPT/HCPCS: 36415; 80048; 85025; 99281; 99283

== ENCOUNTER 2023-05-24 08:35 | Outpatient (REF) | payer BC, SELFPAY ==
[2023-05-24 08:43] LABS: Appearance Urine Cloudy; Color Urine Dark Yellow; Glucose Urine UA Negative (Negative); Leukocyte Esterase Urine Negative (Negative); Nitrite Urine Negative (Negative); Specific Gravity - Urine 1.025 (1.005-1.025); Urine Blood Negative (Negative); Urine Ketones Negative (Negative); Urine Protein Negative (Neg-Trace)
== END 2023-05-24 08:36 | disposition home or self-care (01) ==
LOC: HO.HVNA 08:35
PROVIDERS: Visit Provider Internal Medicine
DX: R39.15 Urgency of urination (principal); R30.9 Painful micturition, unspecified
CPT/HCPCS: 81003; 87086; 87147